=== PATIENT | male | born 1950 | race Asian ===

== ENCOUNTER → 2016-12-19 | Outpatient (CLI) | payer OTHER ==
[~2016-12-19] MED LIST: AMLO10TA4 PO; AMLO5TAB2 PO; APIX2.5T PO; ASPI-496 PO; ASPI-621 PO; ATOR40TA78 PO; CARV25TA12 PO; ERGO500017 PO; FURO-93 PO; FURO40TA6 PO; HUM100VI6 SQ; ISOS30TA8 PO; LEVO500T33 PO; LISI-170 PO; LOSA100T6 PO; LOSA25TA2 PO; METF10002 PO; METO10TA6 PO; METO2.5T PO; POTA20TA91 PO; POTASSIUM; POTASSIUM PO; SIMV10TA PO; SITA50TA PO; SPIR100T PO; TORS20TA PO
== END | disposition home or self-care (01) ==
LOC: RAD 13:56
PROVIDERS: ATTEND Internal Medicine Cardiovascular Disease
DX: R18.8 Other ascites (principal); R14.0 Abdominal distension (gaseous); N18.3 Chronic kidney disease, stage 3 (moderate)
CPT/HCPCS: 76705

== ENCOUNTER → 2017-01-10 | Outpatient (CLI) | payer OTHER | END | disposition home or self-care (01) | LOC: RAD 14:27 | PROVIDERS: ATTEND Internal Medicine Cardiovascular Disease | DX: I50.9 Heart failure, unspecified (principal); N18.3 Chronic kidney disease, stage 3 (moderate); K80.20 Calculus of gallbladder without cholecystitis without obstruction; K76.9 Liver disease, unspecified | CPT/HCPCS: 76700 ==

== ENCOUNTER → 2017-04-26 | Outpatient (CLI) | payer OTHER ==
[~2017-04-26] MED LIST changes: -LEVO500T33 PO; +LEVO500T47 PO
== END | disposition home or self-care (01) ==
LOC: RAD 17:10
PROVIDERS: ATTEND Family Medicine
DX: R93.1 Abnormal findings on diagnostic imaging of heart and coronary circulation (principal)
CPT/HCPCS: 71020

== ENCOUNTER 2017-06-07 12:27 | Inpatient (IN) | payer OTHER ==
[~2017-06-07] VITALS: Ht 177.8 cm; Wt 78.1 kg
[~2017-06-07 12:27] MED LIST changes: +GABA300C10 PO
[2017-06-07] MEDS ORDERED: SODIUM CHLORIDE 0.9% 1,000 ML IV ONE (13:28)
[2017-06-07 13:53] LABS: HEMATOCRIT 40.5 % (39.2-51.8); WHITE BLOOD COUNT 5.6 x10^3/uL (3.4-10)
[2017-06-07 14:03] LABS: ASPARTATE AMINO TRANSFERASE 27 U/L (15-37); BLOOD UREA NITROGEN 62 mg/dL (7-18)
[2017-06-07 14:11] LABS: IS PT STATUS REG ER OR PRE ER? YES
[2017-06-07] MEDS ORDERED: LINA5TAB PO (15:42)
[2017-06-07] MEDS ORDERED: ACETAMINOPHEN 325 MG TABLET PO PRN (18:30)
[2017-06-07] MEDS ORDERED: BISACODYL 10 MG SUPP PR PRN (18:30)
[2017-06-07 18:59] VITALS: BP 134/76
[2017-06-07] MEDS ORDERED: ERGOCALCIFEROL 50,000 UNIT CAPSULE PO SCH (19:00)
[2017-06-07 19:29] LABS: IS PT STATUS REG ER OR PRE ER? NO
[2017-06-07] MEDS ORDERED: FUROSEMIDE 40 MG TABLET PO SCH (21:00)
[2017-06-07] MEDS ORDERED: LISI-170 PO (21:29)
[2017-06-07] MEDS ORDERED: CARV-39 PO (21:29)
[2017-06-07] MEDS ORDERED: FURO40TA6 PO (21:31)
[2017-06-07] MEDS: APIXABAN 2.5 MG TABLET PO SCH (21:32)
[2017-06-07] MEDS: SPIRONOLACTONE 100 MG TABLET PO SCH (21:33)
[2017-06-07] MEDS: INSULIN ASPART 100 UNITS/ML, PEN SQ-INSULIN SCH (23:26)
[2017-06-07] MEDS: FUROSEMIDE 40 MG TABLET PO SCH (23:27)
[2017-06-08 01:35] VITALS: BP 131/84
[2017-06-08 04:10] VITALS: BP_SYST 123; BP_SYST 124; BP_DIAS 77; BP_DIAS 78
[2017-06-08] MEDS ORDERED: ASPIRIN 81 MG TABLET EC PO SCH (06:00)
[2017-06-08 06:11] LABS: ASPARTATE AMINO TRANSFERASE 27 U/L (15-37); BLOOD UREA NITROGEN 62 mg/dL (7-18)
[2017-06-08 08:19] VITALS: BP_SYST 124; BP_SYST 132; BP_SYST 137; BP_DIAS 77; BP_DIAS 78; BP_DIAS 81
[2017-06-08] MEDS: APIXABAN 2.5 MG TABLET PO SCH (08:31)
[2017-06-08] MEDS: SPIRONOLACTONE 100 MG TABLET PO SCH (08:31)
[2017-06-08] MEDS: INSULIN ASPART 100 UNITS/ML, PEN SQ-INSULIN SCH ×3 (08:31→17:48)
[2017-06-08] MEDS: FUROSEMIDE 40 MG TABLET PO SCH (08:31)
[2017-06-08] MEDS ORDERED: FUROSEMIDE 40 MG TABLET PO SCH (09:00)
[2017-06-08] MEDS ORDERED: SENNA/DOCUSATE TABLET PO SCH (09:00)
[2017-06-08 14:23] VITALS: BP 136/65
[2017-06-08] MEDS ORDERED: APIXABAN 5 MG TABLET PO SCH (17:00)
[2017-06-08] MEDS ORDERED: CARVEDILOL 25 MG TABLET PO SCH (21:00)
== END 2017-06-08 18:55 | disposition home or self-care (01) | DRG 291 ==
LOC: ED 13:32 → EDIP 17:01 → 5SO 17:38
PROVIDERS: ADMIT Hospitalist; ATTEND Hospitalist
DX: I13.0 Hypertensive heart and chronic kidney disease with heart failure and stage 1 through stage 4 chronic kidney disease, or unspecified chronic kidney disease (principal); I50.43 Acute on chronic combined systolic (congestive) and diastolic (congestive) heart failure; N17.9 Acute kidney failure, unspecified; E11.22 Type 2 diabetes mellitus with diabetic chronic kidney disease; R18.8 Other ascites; E87.1 Hypo-osmolality and hyponatremia; I42.9 Cardiomyopathy, unspecified; Z99.81 Dependence on supplemental oxygen; N18.4 Chronic kidney disease, stage 4 (severe); D64.9 Anemia, unspecified; I25.10 Atherosclerotic heart disease of native coronary artery without angina pectoris; I35.1 Nonrheumatic aortic (valve) insufficiency; I48.2 Chronic atrial fibrillation; J44.9 Chronic obstructive pulmonary disease, unspecified; V89.2XXA Person injured in unspecified motor-vehicle accident, traffic, initial encounter; Y92.410 Unspecified street and highway as the place of occurrence of the external cause; Z79.4 Long term (current) use of insulin; Z86.73 Personal history of transient ischemic attack (TIA), and cerebral infarction without residual deficits; Z95.1 Presence of aortocoronary bypass graft
CPT/HCPCS: 36415; 70450; 71010; 80053; 81003; 82962; 83880; 84436; 84443; 84484; 85025; 85610; 93005; 95819; J1815